=== PATIENT | male | born 1950 | race Hispanic/Latino ===

== ENCOUNTER 2017-05-20 16:29 | Emergency (ER) | payer MEDICARE ==
[2017-05-20 17:15] LABS: BASOPHILS % (AUTO) 0.3 % (0.0-5.0); EOSINOPHILS % (AUTO) 0.2 % (0.0-8.0); HEMATOCRIT 43.4 % (42-54); LYMPHOCYTES % (AUTO) 30.5 % (21.0-51.0); MEAN CORPUSCULAR HEMOGLOBIN 30.7 pg (27.0-33.0); MEAN CORPUSCULAR HGB CONC 33.8 g/dL (32.0-36.0); MEAN CORPUSCULAR VOLUME 90.6 fL (79-99); PLATELET COUNT (AUTO) 234 K/uL (130-400); RED BLOOD CELL COUNT(AUTO) 4.79 MIL/uL (4.50-6.20); RED CELL DISTRIBUTION WIDTH 13.1 % (11.0-15.5)
[2017-05-20 17:22] LABS: CREATININE 0.9 mg/dL (0.5-1.5); POTASSIUM 3.7 mmol/L (3.5-5.1)
[2017-05-20 17:27] LABS: ALBUMIN 3.6 g/dL (3.5-5.0); BILIRUBIN,TOTAL 0.3 mg/dL (0.2-1.0)
[2017-05-20] MEDS ORDERED: IPRATROPIUM/ALBUTEROL SULFATE 3 ML SOLUTION IH ONE (17:41)
[2017-05-20] MEDS ORDERED: METHYLPREDNISOLONE SOD SUCC 125MG/2ML VIAL ONE (18:20)
== END 2017-05-20 18:48 | disposition home or self-care (01) ==
LOC: EDH 16:29
DX: J20.9 Acute bronchitis, unspecified (principal); E11.9 Type 2 diabetes mellitus without complications; I10 Essential (primary) hypertension; E78.5 Hyperlipidemia, unspecified; Z72.0 Tobacco use
CPT/HCPCS: 36415; 71020; 80053; 84484; 85025; 87804 ×2; 94640; 96372; 99285; J2930

== ENCOUNTER 2021-11-05 06:31 | Day surgery (SDC) | payer MEDICARE ==
[2021-11-04 09:05] LABS: BASOPHILS % (AUTO) 0.7 % (0.0-5.0); EOSINOPHILS % (AUTO) 0.8 % (0.0-8.0); LYMPHOCYTES % (AUTO) 22.9 % (21.0-51.0); MEAN CORPUSCULAR HEMOGLOBIN 30.3 pg (27.0-33.0); MEAN CORPUSCULAR HGB CONC 31.7 g/dL (32.0-36.0); MEAN CORPUSCULAR VOLUME 95.4 fL (79-99); MONOCYTES % (AUTO) 6.4 % (3.0-13.0); NEUTROPHILS % (AUTO) 68.9 % (40.0-77.0); PLATELET COUNT (AUTO) 264 K/uL (130-400); RED BLOOD CELL COUNT(AUTO) 4.82 MIL/uL (4.50-6.20); RED CELL DISTRIBUTION WIDTH 13.3 % (11.0-15.5)
[2021-11-04 09:11] LABS: POTASSIUM 4.2 mmol/L (3.5-5.1)
[2021-11-04 13:50] VITALS: BP 140/72
[2021-11-05] VITALS (13 sets, daily range): BP systolic 85–164; BP diastolic 43–84
[~2021-11-05] VITALS: Ht 170.2 cm; Wt 79.8 kg
[~2021-11-05 06:31] MED LIST: ATOR20TA65 PO; CEFAZOLIN SODIUM 1 GM VIAL IVP SCH; ENAL10TA18 PO; GABA-529 PO; METF-444 PO; MONT-39 PO; PANT40TA54 PO; PRED10TA3 PO; TRAM50TA4 PO
[2021-11-05] MEDS ORDERED: 0.9%NACL 1000ML 1,000 ML IV ONE (06:41)
[2021-11-05] MEDS ORDERED: BUPIVACAINE/EPI/PF 0.5% 30ML VIAL IJ ONE (07:01)
[2021-11-05] MEDS ORDERED: BUPIVACAINE/PF 0.5% 30ML VIAL ONE (07:01)
[2021-11-05] MEDS ORDERED: LIDOCAINE PF 100MG/5ML (2%) SYRINGE 5ML ONE (07:08)
[2021-11-05] MEDS ORDERED: PROPOFOL 10 MG/ML 20ML VIAL IV ONE (07:09)
[2021-11-05] MEDS ORDERED: MIDAZOLAM HCL 1 MG/ML 2ML VIAL ONE (07:09)
[2021-11-05] MEDS ORDERED: FENTANYL CITRATE PF 50 MCG/1 ML 2ML VIAL ONE (07:09)
[2021-11-05] MEDS ORDERED: IOPAMIDOL 10 ML VIAL ONE (07:50)
[2021-11-05] MEDS ORDERED: CEFAZOLIN SODIUM 2 GM VIAL IV ONE (08:10)
[2021-11-05] MEDS ORDERED: BUPIVACAINE/PF 0.5% 30ML VIAL INJ ONE (08:10)
[2021-11-05] MEDS ORDERED: DEXAMETHASONE SOD PHOSPHATE 10MG/ML 1ML VIAL ONE (08:13)
[2021-11-05] MEDS ORDERED: ONDANSETRON 4MG INJ ONE (08:13)
[2021-11-05] MEDS ORDERED: EPHEDRINE SULFATE 50 MG/ML AMPULE ONE (08:15)
== END 2021-11-05 09:35 | disposition home or self-care (01) ==
LOC: DAH 06:31
PROVIDERS: ATTEND Student in an Organized Health Care Education/Training Program
DX: M16.0 Bilateral primary osteoarthritis of hip (principal); G89.29 Other chronic pain; I10 Essential (primary) hypertension; J44.9 Chronic obstructive pulmonary disease, unspecified; K21.9 Gastro-esophageal reflux disease without esophagitis; E11.9 Type 2 diabetes mellitus without complications; E78.5 Hyperlipidemia, unspecified; F17.210 Nicotine dependence, cigarettes, uncomplicated; Z79.01 Long term (current) use of anticoagulants; Z90.49 Acquired absence of other specified parts of digestive tract; Z98.890 Other specified postprocedural states; Z86.73 Personal history of transient ischemic attack (TIA), and cerebral infarction without residual deficits; Z79.899 Other long term (current) drug therapy
CPT/HCPCS: 20610; 36415; 73503; 80048; 82948 ×2; 85025; 87635; 93005; A4215; A4221; A4222; A4223; A4663; A5120; C9803; J0690 ×2; J1030 ×2; J1100; J2001; J2250; J2405; J2704; J3010; J3490 ×3; J7030; Q9966

== ENCOUNTER → 2022-03-22 | Outpatient (CLI) | payer MEDICARE ==
[~2022-03-22] MED LIST changes: -CEFAZOLIN SODIUM 1 GM VIAL IVP SCH
== END | disposition home or self-care (01) ==
LOC: RAH 08:59
PROVIDERS: ATTEND Student in an Organized Health Care Education/Training Program
DX: M51.26 Other intervertebral disc displacement, lumbar region (principal); M48.061 Spinal stenosis, lumbar region without neurogenic claudication; M51.36 Other intervertebral disc degeneration, lumbar region
CPT/HCPCS: 72148

== ENCOUNTER 2022-06-27 13:00 | Observation (INO) | payer MEDICARE ==
[~2022-06-27] VITALS: Ht 170.2 cm; Wt 80.3 kg
[2022-06-27 10:21] LABS: BASOPHILS % (AUTO) 0.6 % (0.0-5.0); EOSINOPHILS % (AUTO) 1.5 % (0.0-8.0); LYMPHOCYTES % (AUTO) 23.9 % (21.0-51.0); MEAN CORPUSCULAR HEMOGLOBIN 29.4 pg (27.0-33.0); MEAN CORPUSCULAR HGB CONC 32.1 g/dL (32.0-36.0); MEAN CORPUSCULAR VOLUME 91.5 fL (79-99); NEUTROPHILS % (AUTO) 65.8 % (40.0-77.0); PLATELET COUNT (AUTO) 339 K/uL (130-400); RED CELL DISTRIBUTION WIDTH 13.6 % (11.0-15.5); WHITE BLOOD COUNT (AUTO) 10.1 K/uL (4.8-10.8)
[2022-06-27 11:04] LABS: CREATININE 0.9 mg/dL (0.5-1.5); POTASSIUM 4.2 mmol/L (3.5-5.1)
[2022-06-27 13:30] VITALS: BP 122/72
[2022-06-28] VITALS (26 sets, daily range): BP systolic 118–167; BP diastolic 43–118
[2022-06-28] MEDS: CEFAZOLIN SODIUM 2 GM VIAL IVPB SCH ×3 (05:00→18:30)
[2022-06-28] MEDS ORDERED: 0.9%NACL 1000ML 1,000 ML IV ONE (06:35)
[2022-06-28] MEDS ORDERED: DICL50TA9 PO (06:57)
[2022-06-28] MEDS ORDERED: CETI-89 PO (06:57)
[2022-06-28] MEDS ORDERED: BACL20TA PO (06:57)
[2022-06-28] MEDS ORDERED: ZOLP10TA2 PO (06:57)
[2022-06-28] MEDS ORDERED: UMEC1DIS IH (06:57)
[2022-06-28] MEDS ORDERED: CEFAZOLIN SODIUM 1 GM VIAL ONE (07:00)
[2022-06-28] MEDS ORDERED: MORPHINE PF 100MG/10ML AMP IV ONE ×2 (07:01→07:02)
[2022-06-28] MEDS ORDERED: THROMBIN-JMI 20000 UNIT KIT TP ONE (07:03)
[2022-06-28] MEDS ORDERED: GLYCOPYRROLATE 1 MG/5 ML SYRINGE ONE (07:21)
[2022-06-28] MEDS ORDERED: PROPOFOL 10 MG/ML 20ML VIAL IV ONE (07:21)
[2022-06-28] MEDS ORDERED: DEXAMETHASONE SOD PHOSPHATE 10MG/ML 1ML VIAL ONE ×2 (07:21→08:34)
[2022-06-28] MEDS ORDERED: LIDOCAINE PF 100MG/5ML (2%) SYRINGE 5ML ONE (07:21)
[2022-06-28] MEDS ORDERED: SUCCINYLCHOLINE CHLORIDE 20 MG/ML 10 ML VIAL ONE (07:21)
[2022-06-28] MEDS ORDERED: NEOSTIGMINE 5MG/5ML SYR IV ONE (07:22)
[2022-06-28] MEDS ORDERED: ROCURONIUM 10MG/1ML SYR 10 MG/ML ML ONE (07:22)
[2022-06-28] MEDS ORDERED: MIDAZOLAM HCL 1 MG/ML 2ML VIAL ONE (07:22)
[2022-06-28] MEDS ORDERED: ONDANSETRON 4MG INJ ONE ×2 (07:22→14:55)
[2022-06-28] MEDS ORDERED: FENTANYL CITRATE PF 50 MCG/1 ML 2ML VIAL ONE ×2 (07:23→13:09)
[2022-06-28] MEDS: BUPIVACAINE/EPI/PF 0.25% 10ML VIAL IJ SCH (10:00)
[2022-06-28] MEDS ORDERED: ARTIFICIAL TEARS 3.5 GM OINTMENT ONE (12:05)
[2022-06-28] MEDS ORDERED: PHENYLEPHRINE HCL 10 MG/ML 1ML VIAL IV ONE (12:06)
[2022-06-28] MEDS ORDERED: PROMETHAZINE HCL 25 MG/ML 1ML AMPULE IM PRN (14:30)
[2022-06-28] MEDS: LACTATED RINGERS 1000ML 1,000 ML IV SCH ×2 (14:30→21:34)
[2022-06-28] MEDS ORDERED: TRAMADOL HCL 50 MG TABLET PO PRN (14:30)
[2022-06-28] MEDS: CEFAZOLIN SODIUM 1 GM VIAL IVPB SCH ×2 (14:30→21:24)
[2022-06-28] MEDS ORDERED: MORPHINE 2 MG SYG IVP PRN (14:30)
[2022-06-28] MEDS ORDERED: 0.9%NACL 10ML VIAL IVP PRN (14:30)
[2022-06-28] MEDS ORDERED: KETOROLAC 30MG VIAL (30MG/ML) ONE (14:55)
[2022-06-28] MEDS ORDERED: MEPERIDINE-PF 25 MG/ML SYG ONE (14:56)
[2022-06-28] MEDS: DEXAMETHASONE SOD PHOSPHATE 4 MG/ML 1ML VIAL IVP SCH ×2 (15:23→21:24)
[2022-06-28] MEDS: METFORMIN HCL 500 MG TABLET PO SCH (17:33)
[2022-06-28] MEDS ORDERED: ATORVASTATIN 20 MG TABLET PO SCH (21:00)
[2022-06-28] MEDS ORDERED: ZOLPIDEM TARTRATE 5 MG TAB PO SCH (21:00)
[2022-06-28] MEDS: GABAPENTIN 100 MG CAPSULE PO SCH (21:24)
[2022-06-28] MEDS: INSULIN HUMULIN R 100 UNIT/ML 3ML SQ SCH (21:28)
[2022-06-29] VITALS: BP 120/70
[2022-06-29] MEDS: DEXAMETHASONE SOD PHOSPHATE 4 MG/ML 1ML VIAL IVP SCH ×2 (02:45→08:36)
[2022-06-29 04:00] VITALS: BP 118/60
[2022-06-29] MEDS: INSULIN HUMULIN R 100 UNIT/ML 3ML SQ SCH ×2 (05:41→11:30)
[2022-06-29] MEDS: HYDROCODONE/ACETAMINOPHEN 5/325 MG TAB PO PRN ×2 (06:33→12:32)
[2022-06-29 08:10] VITALS: BP 118/55
[2022-06-29] MEDS: METFORMIN HCL 500 MG TABLET PO SCH (08:33)
[2022-06-29] MEDS: GABAPENTIN 100 MG CAPSULE PO SCH (08:40)
[2022-06-29] MEDS ORDERED: **HM**Umeclidinium Brm/Vilanterol Tr (Anoro Ellipta 62.5-25 Mcg IH SCH (09:00)
[2022-06-29] MEDS ORDERED: CETIRIZINE HCL 5 MG TABLET PO SCH (09:00)
[2022-06-29] MEDS ORDERED: ENALAPRIL MALEATE 10 MG TABLET PO SCH (09:00)
[2022-06-29] MEDS ORDERED: DICLOFENAC SODIUM 50 MG PO SCH (09:00)
[2022-06-29] MEDS ORDERED: BACLOFEN 10 MG TABLET PO SCH (09:00)
[2022-06-29] MEDS ORDERED: PANTOPRAZOLE 40 MG TAB DR PO SCH (09:00)
[2022-06-29] MEDS ORDERED: MONTELUKAST SODIUM 10 MG TAB PO SCH (09:00)
[2022-06-29 11:10] VITALS: BP 131/64
== END 2022-06-29 11:45 | disposition home or self-care (01) ==
LOC: EDSTATUS 13:00 → DAHIP 06-28 06:02 → 3BH 06-28 15:32
PROVIDERS: ADMIT Neurological Surgery; ATTEND Neurological Surgery
DX: M48.061 Spinal stenosis, lumbar region without neurogenic claudication (principal); Z20.822 Contact with and (suspected) exposure to COVID-19; J44.9 Chronic obstructive pulmonary disease, unspecified; I25.10 Atherosclerotic heart disease of native coronary artery without angina pectoris; I10 Essential (primary) hypertension; K21.9 Gastro-esophageal reflux disease without esophagitis; E11.9 Type 2 diabetes mellitus without complications; I73.9 Peripheral vascular disease, unspecified; Q21.9 Congenital malformation of cardiac septum, unspecified; F17.200 Nicotine dependence, unspecified, uncomplicated; Z79.899 Other long term (current) drug therapy
CPT/HCPCS: 80048; 85025; 87426; 36415; 63047; 63048 ×3; 96374; 96376 ×2; 96375; 82948 ×5; 72020; J1815; J1100 ×7; G0378 ×22; A4663; J7120 ×3; A4344; A4649 ×3; J3010 ×2; J0690 ×3; J3490 ×2; J2710; J0330; J7030; J2001; J2250; J2704; J2274 ×2; J2405 ×2; J1885; J2175; J2370; A4215; A4223; A4222; A4221; A4600; A4510

== ENCOUNTER → 2023-01-05 | Outpatient (CLI) | payer MEDICARE ==
[~2023-01-05] MED LIST changes: +BACL20TA PO; +CETI-89 PO; +DICL50TA9 PO; +ENAL-89 PO; -ENAL10TA18 PO; -PRED10TA3 PO; +UMEC1DIS IH; +ZOLP10TA2 PO
== END | disposition home or self-care (01) ==
LOC: RAH 14:55
PROVIDERS: ATTEND Internal Medicine
DX: M50.121 Cervical disc disorder at C4-C5 level with radiculopathy (principal); M50.20 Other cervical disc displacement, unspecified cervical region; M48.02 Spinal stenosis, cervical region
CPT/HCPCS: 72141

== ENCOUNTER 2023-03-08 06:01 | Day surgery (SDC) | payer OTHER, MEDICARE ==
[2023-03-07 11:38] LABS: BASOPHILS # (AUTO) 0.05 K/uL (0.00-0.20); BASOPHILS % (AUTO) 0.5 % (0.0-5.0); EOSINOPHILS # (AUTO) 0.13 K/uL (0.00-0.70); EOSINOPHILS % (AUTO) 1.4 % (0.0-8.0); HEMATOCRIT 44.3 % (42-54); IMMATURE GRANULOCYTE ABSOLUTE 0.03 K/uL (0-1); LYMPHOCYTES # (AUTO) 2.9 K/uL (1.0-4.8); LYMPHOCYTES % (AUTO) 31.3 % (21.0-51.0); MEAN CORPUSCULAR HEMOGLOBIN 29.3 pg (27.0-33.0); MEAN CORPUSCULAR HGB CONC 31.6 g/dL (32.0-36.0); MEAN CORPUSCULAR VOLUME 92.7 fL (79-99); MONOCYTES # (AUTO) 0.8 K/uL (0.1-1.0); MONOCYTES % (AUTO) 8.5 % (3.0-13.0); NEUTROPHILS # (AUTO) 5.3 K/uL (1.8-7.7); PLATELET COUNT (AUTO) 331 K/uL (130-400); RED BLOOD CELL COUNT(AUTO) 4.78 MIL/uL (4.50-6.20); WHITE BLOOD COUNT (AUTO) 9.2 K/uL (4.8-10.8)
[2023-03-07 11:49] LABS: POTASSIUM 5.2 mmol/L (3.5-5.1)
[2023-03-07 11:51] LABS: INR < 0.93 (0.85-1.15); PROTHROMBIN TIME 10.4 SEC (9.6-11.6)
[2023-03-07 11:53] LABS: PARTIAL THROMBOPLASTIN TIME 30.2 SEC (26.3-35.5)
[~2023-03-08] VITALS: Ht 165.1 cm; Wt 79.2 kg
[2023-03-08] VITALS (14 sets, daily range): BP systolic 109–160; BP diastolic 53–69; PULSE 58–68; RESP 11–18
[2023-03-08] MEDS ORDERED: 0.9%NACL 1000ML 1,000 ML IV ONE (06:20)
[2023-03-08] MEDS ORDERED: CEFAZOLIN SODIUM 2 GM VIAL ONE ×2 (06:20→10:01)
[2023-03-08] MEDS ORDERED: LIDOCAINE 2%-EPI PF 30 ML+BUPIVACAINE/PF 0.25% 30ML /60ML SYR IJ SCH ×2 (07:00)
[2023-03-08] MEDS ORDERED: ROPIVACAINE 0.5% 5MG/ML 30ML IJ ONE (07:31)
[2023-03-08] MEDS ORDERED: MIDAZOLAM HCL 1 MG/ML 2ML VIAL ONE (07:32)
[2023-03-08] MEDS ORDERED: CEFAZOLIN SODIUM 2 GM VIAL IVPB ONE (07:45)
[2023-03-08] MEDS ORDERED: CYAN-35 PO (07:49)
[2023-03-08] MEDS ORDERED: ozempic SQ (07:49)
[2023-03-08] MEDS ORDERED: MAGN400C PO (07:49)
[2023-03-08] MEDS ORDERED: ZOLP10TA2 PO (07:49)
[2023-03-08] MEDS ORDERED: CHOL12509 PO (07:49)
[2023-03-08] MEDS ORDERED: BENZ-226 PO (07:49)
[2023-03-08] MEDS ORDERED: ACET-2079 PO (07:49)
[2023-03-08] MEDS ORDERED: FLUMAZENIL 0.1MG/1ML 5ML VIAL IV ONE (08:37)
[2023-03-08] MEDS ORDERED: KETOROLAC 15MG/ML VIAL (15MG/ML) ONE (10:01)
== END 2023-03-08 11:10 | disposition home or self-care (01) ==
LOC: DAH 06:01
PROVIDERS: ATTEND Neurological Surgery
DX: G56.01 Carpal tunnel syndrome, right upper limb (principal); G56.21 Lesion of ulnar nerve, right upper limb; J44.9 Chronic obstructive pulmonary disease, unspecified; K21.9 Gastro-esophageal reflux disease without esophagitis; E11.9 Type 2 diabetes mellitus without complications; Z87.891 Personal history of nicotine dependence; Z79.01 Long term (current) use of anticoagulants; Z79.899 Other long term (current) drug therapy
CPT/HCPCS: 80048; 85025; 85610; 85730; 36415; 71045; 93005; 24147; 64718; 64721; 64415; 82948 ×2; A6260; A4663; A4565; C1713; J3490 ×2; J7030; J0665; J2250; J2795; J1885; J0690 ×3; A4649; A4215; A4223; A4222; A4221; A4510; A4600

== ENCOUNTER 2023-03-22 03:55 | Emergency (ER) | payer OTHER, MEDICARE ==
[~2023-03-22] VITALS: Ht 170.2 cm; Wt 78.5 kg
[~2023-03-22 03:55] MED LIST changes: +ACET-2079 PO; +BENZ-226 PO; -CETI-89 PO; +CHOL12509 PO; +CYAN-35 PO; +MAGN400C PO; -METF-444 PO; +ozempic SQ
[2023-03-22] MEDS ORDERED: MORPHINE 2 MG SYG IM ONE (04:30)
[2023-03-22] MEDS ORDERED: CYCL-309 PO (04:48)
[2023-03-22] MEDS ORDERED: IBUP-1493 PO (04:48)
[2023-03-22 05:53] VITALS: BP 136/65; PULSE 96; RESP 18; O2SAT 98
== END 2023-03-22 05:45 | disposition home or self-care (01) ==
LOC: EDH 03:55
DX: M25.552 Pain in left hip (principal); E11.9 Type 2 diabetes mellitus without complications; E78.00 Pure hypercholesterolemia, unspecified; I10 Essential (primary) hypertension; Z79.899 Other long term (current) drug therapy
CPT/HCPCS: 99284; 72190; 96372; J2270

== ENCOUNTER 2023-03-26 04:50 | Observation (INO) | payer OTHER, MEDICARE ==
[~2023-03-26] VITALS: Ht 170.2 cm; Wt 69.9 kg
[~2023-03-26 04:50] MED LIST changes: +CYCL-309 PO; +IBUP-1493 PO
[2023-03-26 05:18] LABS: BASOPHILS # (AUTO) 0.04 K/uL (0.00-0.20); BASOPHILS % (AUTO) 0.3 % (0.0-5.0); EOSINOPHILS # (AUTO) 0.03 K/uL (0.00-0.70); EOSINOPHILS % (AUTO) 0.2 % (0.0-8.0); HEMATOCRIT 42.4 % (42-54); IMMATURE GRANULOCYTE ABSOLUTE 0.04 K/uL (0-1); LYMPHOCYTES # (AUTO) 2.9 K/uL (1.0-4.8); LYMPHOCYTES % (AUTO) 23.5 % (21.0-51.0); MEAN CORPUSCULAR HEMOGLOBIN 29.9 pg (27.0-33.0); MEAN CORPUSCULAR HGB CONC 32.8 g/dL (32.0-36.0); MEAN CORPUSCULAR VOLUME 91.2 fL (79-99); MONOCYTES # (AUTO) 0.8 K/uL (0.1-1.0); MONOCYTES % (AUTO) 6.5 % (3.0-13.0); NEUTROPHILS # (AUTO) 8.5 K/uL (1.8-7.7); NEUTROPHILS % (AUTO) 69.2 % (40.0-77.0); PLATELET COUNT (AUTO) 304 K/uL (130-400); RED BLOOD CELL COUNT(AUTO) 4.65 MIL/uL (4.50-6.20); WHITE BLOOD COUNT (AUTO) 12.4 K/uL (4.8-10.8)
[2023-03-26 05:23] LABS: CARBON DIOXIDE 26 mmol/L (21-32); CHLORIDE 100 mmol/L (101-111); CREATININE 2.7 mg/dL (0.5-1.5); GLOMERULAR FILTR. RATE CALC 25 mL/min (>90); GLUCOSE,RANDOM 103 mg/dL (70-105); POTASSIUM 4.7 mmol/L (3.5-5.1); SODIUM SERUM 136 mmol/L (136-145); UREA NITROGEN, BLOOD 26 mg/dL (7-18)
[2023-03-26 05:32] LABS: INR 0.97 (0.85-1.15); PROTHROMBIN TIME 10.5 SEC (9.6-11.6)
[2023-03-26 05:36] LABS: ALCOHOL, BLOOD < 3 mg/dL (0-10); CREATINE KINASE, TOTAL 157 U/L (21-232); MYOGLOBIN 431 ng/mL (10-92)
[2023-03-26] MEDS ORDERED: ALBUTEROL 0.083% 2.5 MG/3 ML INH IH PRN (06:00)
[2023-03-26] MEDS ORDERED: LACTULOSE 20 GM/30 ML UDCUP PO PRN (06:00)
[2023-03-26] MEDS ORDERED: ONDANSETRON 4MG INJ IVP PRN (06:00)
[2023-03-26] MEDS ORDERED: ACETAMINOPHEN 650 MG SUPPOSITORY RC PRN (06:00)
[2023-03-26] MEDS ORDERED: ACETAMINOPHEN 325 MG TAB PO PRN (06:00)
[2023-03-26] MEDS: LACTATED RINGERS 1000ML 1,000 ML IV SCH ×3 (06:12→21:37)
[2023-03-26 06:17] LABS: APPEARANCE,URINE CLEAR (CLEAR); BILIRUBIN,URINE NEGATIVE (NEGATIVE); COLOR,URINE LIGHT-YELLOW (YELLOW); GLUCOSE, URINE (UA) NEGATIVE (NEGATIVE); KETONES,URINE NEGATIVE (NEGATIVE); LEUKOCYTE ESTERASE ,URINE NEGATIVE Leu/uL (NEGATIVE); NITRATE,URINE NEGATIVE (NEGATIVE); OCCULT BLOOD,URINE NEGATIVE (NEGATIVE); PH,URINE 5.5 (5.0-8.0); PROTEIN,URINE NEGATIVE (NEGATIVE); UROBILINOGEN,URINE 0.2 mg/dL (0.2-1.0)
[2023-03-26 06:21] LABS: ADD UA MICROSCOPIC YES
[2023-03-26 06:22] LABS: MUCUS,URINE RARE LPF (None Seen); SQUAMOUS EPITHELIAL CELL,UR RARE /HPF (0-2)
[2023-03-26] MEDS ORDERED: LORA10TA7 PO (06:22)
[2023-03-26] MEDS ORDERED: GABA-529 PO (06:22)
[2023-03-26] MEDS ORDERED: UMEC1DIS IH (06:23)
[2023-03-26 06:24] LABS: AMPHET/METH SCREEN,URINE NEGATIVE (NEGATIVE); BARBITURATE SCREEN, URINE NEGATIVE (NEGATIVE); BENZODIAZEPINES SCREEN,URINE NEGATIVE (NEGATIVE); CANNABINOID SCREEN,URINE NEGATIVE (NEGATIVE); COCAINE SCREEN,URINE POSITIVE (NEGATIVE); OPIATE SCREEN,URINE NEGATIVE (NEGATIVE); PHENCYCLIDINE SCREEN,URINE NEGATIVE (NEGATIVE)
[2023-03-26 07:08] VITALS: PULSE 68; RESP 14; O2SAT 96
[2023-03-26 08:47] LABS: CREATININE 2.4 mg/dL (0.5-1.5); POTASSIUM 4.2 mmol/L (3.5-5.1)
[2023-03-26 08:57] LABS: ALBUMIN 3.5 g/dL (3.5-5.0); BILIRUBIN,TOTAL 0.3 mg/dL (0.2-1.0); TOTAL PROTEIN, SERUM 7.2 g/dL (6.0-8.3)
[2023-03-26 09:20] VITALS: BP 137/88; PULSE 80; RESP 18
[2023-03-26] MEDS: HYDROCODONE/ACETAMINOPHEN 5/325 MG TAB PO PRN ×2 (09:24→21:31)
[2023-03-26 12:00] VITALS: BP 148/66; PULSE 73; RESP 14
[2023-03-26 12:14] LABS: ABG BASE EXCESS -3.3 mmol/L (-2.0-3.0); ABG HCO3 21.8 mmol/L (21.0-28.0); ABG OXYGEN SATURATION 95.4 % (95.0-99.0); ABG PCO2 40 mmHg (35-48); ABG PH 7.357 (7.35-7.450); PO2, ARTERIAL BG 80.2 mmHg (83.0-108.0); VENT MODE, BG RA (ROOM AIR)
[2023-03-26 16:00] VITALS: BP 147/92; PULSE 77; RESP 18
[2023-03-26 20:00] VITALS: BP 128/67; PULSE 83; RESP 22
[2023-03-26 21:30] VITALS: O2SAT 95
[2023-03-27] VITALS: BP 125/64; PULSE 75; RESP 20
[2023-03-27 04:00] VITALS: BP 120/74; PULSE 72; RESP 20
[2023-03-27] MEDS: HYDROCODONE/ACETAMINOPHEN 5/325 MG TAB PO PRN ×4 (04:21→16:53)
[2023-03-27 04:55] LABS: HEMATOCRIT 38.6 % (42-54); MEAN CORPUSCULAR HEMOGLOBIN 30.6 pg (27.0-33.0); MEAN CORPUSCULAR HGB CONC 32.9 g/dL (32.0-36.0); RED BLOOD CELL COUNT(AUTO) 4.15 MIL/uL (4.50-6.20); RED CELL DISTRIBUTION WIDTH 13.6 % (11.0-15.5); WHITE BLOOD COUNT (AUTO) 7.9 K/uL (4.8-10.8)
[2023-03-27 05:14] LABS: CREATININE 1.1 mg/dL (0.5-1.5); POTASSIUM 3.9 mmol/L (3.5-5.1)
[2023-03-27] MEDS: LACTATED RINGERS 1000ML 1,000 ML IV SCH (05:24)
[2023-03-27 07:30] VITALS: PULSE 84; RESP 18; O2SAT 99
[2023-03-27 08:00] VITALS: BP 146/75; PULSE 72; RESP 19
[2023-03-27 11:41] VITALS: BP 134/65; PULSE 78; RESP 20
[2023-03-27 16:00] VITALS: BP 161/70; PULSE 65; RESP 20
[2023-03-27] MEDS ORDERED: HYDROCODONE/ACETAMINOPHEN 5/325 MG TAB PO PRN (16:30)
== END 2023-03-27 17:37 | disposition home or self-care (01) ==
LOC: EDH 04:50 → EDHIP 05:44 → 3DH 09:00
PROVIDERS: ADMIT Internal Medicine Critical Care Medicine; ATTEND Internal Medicine Critical Care Medicine
DX: S02.2XXA Fracture of nasal bones, initial encounter for closed fracture (principal); S00.81XA Abrasion of other part of head, initial encounter; I11.0 Hypertensive heart disease with heart failure; N17.9 Acute kidney failure, unspecified; D72.829 Elevated white blood cell count, unspecified; I50.30 Unspecified diastolic (congestive) heart failure; F14.10 Cocaine abuse, uncomplicated; J44.9 Chronic obstructive pulmonary disease, unspecified; I25.10 Atherosclerotic heart disease of native coronary artery without angina pectoris; E11.9 Type 2 diabetes mellitus without complications; E78.00 Pure hypercholesterolemia, unspecified; Z79.899 Other long term (current) drug therapy; W06.XXXA Fall from bed, initial encounter; Y93.89 Activity, other specified; Y92.098 Other place in other non-institutional residence as the place of occurrence of the external cause; Y99.8 Other external cause status
CPT/HCPCS: 81003; 81001; 96360; 96361 ×2; 99285; 82550; 83735; 83874; 84484 ×2; 80053; 82803; 80305; 85025; 85610; 85730; 87088; 82948 ×4; 36415 ×2; 71045; 70450; 70486; 76770; 93005 ×2; 36600; 80048; 85027; 97161; 97116; 97530; G0378 ×34; G8980-CI; G8983-CI

== ENCOUNTER → 2023-07-24 | Outpatient (CLI) | payer MEDICARE ==
[~2023-07-24] MED LIST changes: +LORA10TA7 PO
== END | disposition home or self-care (01) ==
LOC: SHCH 10:49
PROVIDERS: ATTEND Internal Medicine Cardiovascular Disease
DX: I65.23 Occlusion and stenosis of bilateral carotid arteries (principal)
CPT/HCPCS: 93880

== ENCOUNTER → 2024-02-16 | Outpatient (CLI) | payer MEDICARE ==
[~2024-02-16] VITALS: Ht 165.1 cm; Wt 80.7 kg
[2024-02-16 11:36] LABS: APPEARANCE,URINE CLEAR (CLEAR); BILIRUBIN,URINE NEGATIVE (NEGATIVE); COLOR,URINE LIGHT-YELLOW (YELLOW); GLUCOSE, URINE (UA) NEGATIVE (NEGATIVE); KETONES,URINE NEGATIVE (NEGATIVE); LEUKOCYTE ESTERASE ,URINE NEGATIVE Leu/uL (NEGATIVE); NITRATE,URINE NEGATIVE (NEGATIVE); OCCULT BLOOD,URINE NEGATIVE (NEGATIVE); PH,URINE 5.5 (5.0-8.0); PROTEIN,URINE 10 mg/dL (NEGATIVE); UROBILINOGEN,URINE 0.2 mg/dL (0.2-1.0)
[2024-02-16 11:37] LABS: BASOPHILS # (AUTO) 0.07 K/uL (0.00-0.20); BASOPHILS % (AUTO) 0.7 % (0.0-5.0); EOSINOPHILS # (AUTO) 0.18 K/uL (0.00-0.70); EOSINOPHILS % (AUTO) 1.9 % (0.0-8.0); HEMATOCRIT 44.2 % (42-54); IMMATURE GRANULOCYTE ABSOLUTE 0.03 K/uL (0-1); LYMPHOCYTES # (AUTO) 3.1 K/uL (1.0-4.8); LYMPHOCYTES % (AUTO) 32.8 % (21.0-51.0); MEAN CORPUSCULAR HEMOGLOBIN 31.3 pg (27.0-33.0); MEAN CORPUSCULAR HGB CONC 32.1 g/dL (32.0-36.0); MEAN CORPUSCULAR VOLUME 97.4 fL (79-99); MONOCYTES # (AUTO) 0.9 K/uL (0.1-1.0); MONOCYTES % (AUTO) 9.6 % (3.0-13.0); NEUTROPHILS # (AUTO) 5.1 K/uL (1.8-7.7); NEUTROPHILS % (AUTO) 54.7 % (40.0-77.0); PLATELET COUNT (AUTO) 284 K/uL (130-400); RED BLOOD CELL COUNT(AUTO) 4.54 MIL/uL (4.50-6.20); RED CELL DISTRIBUTION WIDTH 13.5 % (11.0-15.5); WHITE BLOOD COUNT (AUTO) 9.4 K/uL (4.8-10.8)
[2024-02-16 11:40] LABS: CREATININE 1.1 mg/dL (0.5-1.3); POTASSIUM 4.8 mmol/L (3.5-5.1)
[2024-02-16 11:42] LABS: ADD UA MICROSCOPIC YES
[2024-02-16 11:51] VITALS: BP 139/73; PULSE 59; RESP 18; TEMP 97.8
[2024-02-16 11:56] LABS: INR 0.95 (0.85-1.15); PROTHROMBIN TIME 10.3 SEC (9.6-11.6)
[2024-02-16 11:58] LABS: PARTIAL THROMBOPLASTIN TIME 28.2 SEC (26.3-35.5)
[2024-02-16 12:14] LABS: MUCUS,URINE RARE LPF (None Seen); WBC,URINE 0-1 /HPF (0-1)
== END | disposition home or self-care (01) ==
LOC: EDSTATUS 08:00 → DAH 10:00 → EDSTATUS 02-19 10:00
PROVIDERS: ATTEND Internal Medicine Cardiovascular Disease
DX: Z01.818 Encounter for other preprocedural examination (principal); I21.9 Acute myocardial infarction, unspecified; I99.8 Other disorder of circulatory system; I65.21 Occlusion and stenosis of right carotid artery
CPT/HCPCS: 36415; 71045; 80048; 81001; 85025; 85610; 85730; 86850; 86900; 86901; 93005

== ENCOUNTER 2024-03-15 10:00 | Inpatient (IN) | payer MEDICARE ==
[~2024-03-15] VITALS: Ht 167.6 cm; Wt 78.9 kg
[~2024-03-15 10:00] MED LIST changes: -ACET-2079 PO; -BENZ-226 PO; -CHOL12509 PO; -CYAN-35 PO; -CYCL-309 PO; -IBUP-1493 PO; -LORA10TA7 PO; -MAGN400C PO; -UMEC1DIS IH
[2024-03-15 11:20] LABS: BASOPHILS # (AUTO) 0.05 K/uL (0.00-0.20); BASOPHILS % (AUTO) 0.5 % (0.0-5.0); HEMATOCRIT 43.6 % (42-54); IMMATURE GRANULOCYTE ABSOLUTE 0.05 K/uL (0-1); LYMPHOCYTES # (AUTO) 2.2 K/uL (1.0-4.8); LYMPHOCYTES % (AUTO) 21.5 % (21.0-51.0); MEAN CORPUSCULAR HEMOGLOBIN 30.7 pg (27.0-33.0); MEAN CORPUSCULAR HGB CONC 32.3 g/dL (32.0-36.0); MONOCYTES # (AUTO) 0.9 K/uL (0.1-1.0); MONOCYTES % (AUTO) 8.2 % (3.0-13.0); NEUTROPHILS # (AUTO) 7.1 K/uL (1.8-7.7); NEUTROPHILS % (AUTO) 68.3 % (40.0-77.0); PLATELET COUNT (AUTO) 318 K/uL (130-400); RED BLOOD CELL COUNT(AUTO) 4.59 MIL/uL (4.50-6.20); RED CELL DISTRIBUTION WIDTH 13.2 % (11.0-15.5); WHITE BLOOD COUNT (AUTO) 10.4 K/uL (4.8-10.8)
[2024-03-15 11:28] LABS: INR 1.01 (0.85-1.15); PROTHROMBIN TIME 10.9 SEC (9.6-11.6)
[2024-03-15 11:29] LABS: CREATININE 1.2 mg/dL (0.5-1.3); PARTIAL THROMBOPLASTIN TIME 29.6 SEC (26.3-35.5)
[2024-03-15 11:37] VITALS: BP 138/73; PULSE 82; RESP 18; TEMP 97.2
[2024-03-15 11:48] LABS: APPEARANCE,URINE CLEAR (CLEAR); BILIRUBIN,URINE NEGATIVE (NEGATIVE); COLOR,URINE LIGHT-YELLOW (YELLOW); GLUCOSE, URINE (UA) NEGATIVE (NEGATIVE); KETONES,URINE NEGATIVE (NEGATIVE); LEUKOCYTE ESTERASE ,URINE NEGATIVE Leu/uL (NEGATIVE); NITRATE,URINE NEGATIVE (NEGATIVE); PROTEIN,URINE NEGATIVE (NEGATIVE); UROBILINOGEN,URINE 0.2 mg/dL (0.2-1.0)
[2024-03-15] MEDS ORDERED: IPRAHFA IH (11:51)
[2024-03-15] MEDS ORDERED: FLUT16H NS (11:51)
[2024-03-15] MEDS ORDERED: SILD100T PO (11:51)
[2024-03-15] MEDS ORDERED: BUDE10.2 IH (11:51)
[2024-03-15] MEDS ORDERED: METF-444 PO (11:51)
[2024-03-15] MEDS ORDERED: ALBU18HF7 IH (11:51)
[2024-03-15] MEDS ORDERED: CLOP75TA32 PO (11:51)
[2024-03-15] MEDS ORDERED: LACT10SO95 PO (11:51)
[2024-03-15 11:58] LABS: ADD UA MICROSCOPIC YES
[2024-03-15 12:16] LABS: MUCUS,URINE RARE LPF (None Seen); WBC,URINE 0-1 /HPF (0-1)
[2024-03-18] VITALS (97 sets, daily range): BP systolic 76–168; BP diastolic 32–105; PULSE 45–73; RESP 5–91; TEMP 97.5–98.4; O2SAT 94–100
[2024-03-18] MEDS: 0.9%NACL 1000ML 1,000 ML IV ONE (06:32)
[2024-03-18] MEDS ORDERED: MIDAZOLAM HCL 1 MG/ML 2ML VIAL ONE (07:10)
[2024-03-18] MEDS ORDERED: phenylEPHRINE HCL 10 MG/ML 1ML VIAL IV ONE (07:10)
[2024-03-18] MEDS ORDERED: FENTanyl CITRate PF 50 MCG/1 ML 2ML VIAL ONE (07:11)
[2024-03-18] MEDS ORDERED: rocuRONium bROMide 10MG/1ML 5ML VL ONE (07:11)
[2024-03-18] MEDS ORDERED: proPOFol 10 MG/ML 20ML VIAL IV ONE ×2 (07:11→09:10)
[2024-03-18] MEDS ORDERED: ondanSETRON 4MG INJ ONE (07:11)
[2024-03-18] MEDS ORDERED: LIDOCAINE HCL 400MG/20ML VIAL ONE (07:16)
[2024-03-18] MEDS ORDERED: IOHEXOL 350 MG/ML 100ML INFUS..BTL IV ONE (07:17)
[2024-03-18] MEDS ORDERED: HEParin-NS 1,000 UNIT/500 ML 500 ML IV ONE ×2 (07:17)
[2024-03-18] MEDS ORDERED: ceFAZolin SODIUM 1 GM VIAL ONE (07:17)
[2024-03-18] MEDS ORDERED: HEParin 10,000 UNIT/10ML (1,000 UNIT/ML) VIAL ONE (07:18)
[2024-03-18] MEDS: ASPIRIN 81MG CHEW TAB ONE (07:22)
[2024-03-18] MEDS: ASPIRIN 81 MG EC TAB PO ONE (07:24)
[2024-03-18] MEDS ORDERED: ATROPINE 1MG SYG IVP ONE ×2 (08:00→08:40)
[2024-03-18] MEDS ORDERED: NITROGLYCERIN 50MG VIAL ONE (08:43)
[2024-03-18] MEDS: fluTICasone proPIONate 50MCG/SPRAY 16 GM BOTTLE NS SCH (09:00)
[2024-03-18] MEDS: ASPIRIN 81MG CHEW TAB PO SCH (09:00)
[2024-03-18] MEDS: ENALAPRIL MALEATE 10 MG TABLET PO SCH (09:00)
[2024-03-18] MEDS ORDERED: NITROGLYCERIN 50MG/D5W 250ML 1 BOT IV PRN (09:00)
[2024-03-18] MEDS ORDERED: NON-FORMULARY MEDICATION 1 EACH (Sildenafil Citrate (Viagra) 100 MG) PO PRN (09:00)
[2024-03-18] MEDS ORDERED: SUB PER P&T FOR ASTHMA OR COPD RECOMMENDATION IH SCH (09:00)
[2024-03-18] MEDS: GABApentin 100 MG CAPSULE PO SCH (09:00)
[2024-03-18] MEDS ORDERED: DEXTROSE 50%-WATER 50 ML DISP.SYRIN IV PRN (09:00)
[2024-03-18] MEDS: SUGAMMADEX SODIUM 200 MG/2 ML VIAL IV ONE (09:12)
[2024-03-18] MEDS ORDERED: ALBUTEROL 0.083% 2.5 MG/3 ML INH IH PRN (09:30)
[2024-03-18] MEDS ORDERED: LACTULOSE 20 GM/30 ML UDCUP PO SCH (09:30)
[2024-03-18] MEDS: NOREPINEPHRIN 4MG/NS 250ML 250 ML IV SCH (10:15)
[2024-03-18] MEDS: dexmedeTOMIDine 400MCG/NS100ML IV ONE (11:04)
[2024-03-18] MEDS: INSULIN humuLIN R 100 UNIT/ML 3ML SQ SCH (11:30)
[2024-03-18] MEDS ORDERED: dexmedeTOMIDine 400MCG/NS100ML IV SCH (11:30)
[2024-03-18 11:36] LABS: ABG BASE EXCESS -6.5 mmol/L (-2.0-3.0); ABG HCO3 18.4 mmol/L (21.0-28.0); ABG OXYGEN SATURATION 96.9 % (94.0-98.0); ABG PCO2 35 mmHg (35-48); ABG PH 7.341 (7.350-7.450); CARBON MONOXIDE 0.8 % (0.5-1.5); HHb 3.1; PO2, ARTERIAL BG 94.6 mmHg (83.0-108.0); VENT MODE, BG RA (ROOM AIR)
[2024-03-18 11:51] LABS: BASOPHILS # (AUTO) 0.07 K/uL (0.00-0.20); BASOPHILS % (AUTO) 0.7 % (0.0-5.0); EOSINOPHILS # (AUTO) 0.06 K/uL (0.00-0.70); EOSINOPHILS % (AUTO) 0.6 % (0.0-8.0); HEMATOCRIT 38.2 % (42-54); IMMATURE GRANULOCYTE ABSOLUTE 0.03 K/uL (0-1); LYMPHOCYTES # (AUTO) 2.4 K/uL (1.0-4.8); LYMPHOCYTES % (AUTO) 22.5 % (21.0-51.0); MEAN CORPUSCULAR HEMOGLOBIN 31.2 pg (27.0-33.0); MEAN CORPUSCULAR VOLUME 94.6 fL (79-99); MONOCYTES # (AUTO) 0.7 K/uL (0.1-1.0); MONOCYTES % (AUTO) 6.4 % (3.0-13.0); NEUTROPHILS # (AUTO) 7.5 K/uL (1.8-7.7); NEUTROPHILS % (AUTO) 69.5 % (40.0-77.0); PLATELET COUNT (AUTO) 289 K/uL (130-400); RED BLOOD CELL COUNT(AUTO) 4.04 MIL/uL (4.50-6.20); WHITE BLOOD COUNT (AUTO) 10.7 K/uL (4.8-10.8)
[2024-03-18 12:03] LABS: BILIRUBIN,TOTAL 0.2 mg/dL (0.2-1.0); CREATININE 0.8 mg/dL (0.5-1.3); POTASSIUM 3.7 mmol/L (3.5-5.1); TOTAL PROTEIN, SERUM 6.5 g/dL (6.0-8.3)
[2024-03-18] MEDS: 0.9%NACL 1000ML 1,000 ML IV SCH (14:52)
[2024-03-18] MEDS: monteLUKAST sodIUM 10 MG TAB PO SCH (14:57)
[2024-03-18] MEDS: PANTOPrazole 40 MG TAB DR PO SCH (14:57)
[2024-03-18] MEDS: cloPIDOgrel 75MG TAB PO SCH (14:58)
[2024-03-18] MEDS: ceFAZolin SODIUM 2 GM VIAL IVPB SCH (16:00)
[2024-03-18] MEDS: traMADol HCL 50 MG TABLET PO PRN (16:01)
[2024-03-18] MEDS ORDERED: ALPRAZolam 0.5 MG TABLET PO PRN (17:00)
[2024-03-18] MEDS: ZOLPidem TARTrate 5 MG TAB PO SCH (20:48)
[2024-03-18] MEDS ORDERED: IpraTROPium 0.5 MG/2.5 ML INH IH SCH (21:00)
[2024-03-18] MEDS: Diclofenac Sodium 50 MG PO SCH (21:00)
[2024-03-18] MEDS: atorVAStatin 20 MG TABLET PO SCH (21:07)
[2024-03-19] VITALS (95 sets, daily range): BP systolic 84–197; BP diastolic 8–105; PULSE 45–78; RESP 10–32; TEMP 98.2–99.1; O2SAT 98
[2024-03-19 03:54] LABS: HEMATOCRIT 33.8 % (42-54); MEAN CORPUSCULAR HEMOGLOBIN 31.3 pg (27.0-33.0); MEAN CORPUSCULAR HGB CONC 33.4 g/dL (32.0-36.0); MEAN CORPUSCULAR VOLUME 93.6 fL (79-99); RED BLOOD CELL COUNT(AUTO) 3.61 MIL/uL (4.50-6.20); RED CELL DISTRIBUTION WIDTH 13.2 % (11.0-15.5); WHITE BLOOD COUNT (AUTO) 12.9 K/uL (4.8-10.8)
[2024-03-19 04:10] LABS: CREATININE 0.8 mg/dL (0.5-1.3); POTASSIUM 3.4 mmol/L (3.5-5.1)
[2024-03-19] MEDS: PoTASSium chloRIDE 20MEQ ER 20 MEQ ERTAB PO PRN (05:54)
[2024-03-19] MEDS: PoTASSium chloRIDE 20MEQ ER 20 MEQ ERTAB PO ONE (05:54)
[2024-03-19] MEDS: BACLOFEN 10 MG TABLET PO SCH (07:40)
[2024-03-19] MEDS: miDODRine HCL 5 MG TABLET PO ONE (07:40)
[2024-03-19 08:57] LABS: MAGNESIUM 1.8 mg/dL (1.80-2.40)
[2024-03-19] MEDS ORDERED: MAGNESIUM 2GM PREMIX 50ML 50 ML IV PRN (09:00)
[2024-03-19] MEDS ORDERED: miDODRine HCL 5 MG TABLET PO PRN (16:00)
== END 2024-03-19 18:51 | disposition home or self-care (01) | DRG 36 ==
LOC: EDSTATUS 10:00 → DAHIP 03-18 05:30 → 2CH 03-18 09:34
PROVIDERS: ADMIT Internal Medicine Pulmonary Disease; ATTEND Internal Medicine Pulmonary Disease
PROC: B31 Imaging, Upper Arteries, Fluoroscopy (ICD-10-PCS; 2024-03-18)
PROC: 037H3DZ Dilation of Right Common Carotid Artery with Intraluminal Device, Percutaneous Approach (ICD-10-PCS; principal; 2024-03-18 07:00)
PROC: 037K3DZ Dilation of Right Internal Carotid Artery with Intraluminal Device, Percutaneous Approach (ICD-10-PCS; 2024-03-18 07:00)
DX: I65.23 Occlusion and stenosis of bilateral carotid arteries (principal); E11.65 Type 2 diabetes mellitus with hyperglycemia; I10 Essential (primary) hypertension; E88.09 Other disorders of plasma-protein metabolism, not elsewhere classified; I95.9 Hypotension, unspecified; E78.5 Hyperlipidemia, unspecified; M54.9 Dorsalgia, unspecified; G89.29 Other chronic pain; J44.9 Chronic obstructive pulmonary disease, unspecified; K21.9 Gastro-esophageal reflux disease without esophagitis; F41.9 Anxiety disorder, unspecified; F17.200 Nicotine dependence, unspecified, uncomplicated; Z90.49 Acquired absence of other specified parts of digestive tract; Z86.73 Personal history of transient ischemic attack (TIA), and cerebral infarction without residual deficits
CPT/HCPCS: 36415; 37215; 71045; 80048; 80053; 80061; 81001; 82435; 82803; 82947; 82948; 83605; 83735; 84132; 84295; 85018; 85025; 85027; 85347; 85610; 85730; 86850; 86900; 86901; 86923; 93005; A4606; C1725; G0378; J0461; J0690; J1644; J1815; J2250; J2371; J2405; J2704; J3010; J3490; J7030; Q9967; A4215; A4216; A4221; A4222; A4223; A4315; A4351; A4649; A4663; A4930; A6219; C-1725; C1713; C1760; C1769; C1876; C1884